=== PATIENT | female | born 1940 | race Caucasian/White ===

== ENCOUNTER → 2016-09-28 | Outpatient (CLI) | payer OTHER ==
[~2016-09-28] MED LIST: B-12500 MC1 SL; COMPAZINE10 MG PO; DECADRON4 MG PO; IBUPROFEN600 MG PO; IBUPROFEN800 MG PO; IRON325 M1 PO; LOVENOX40 MG/0.4 SC; METOPROLOL SUCC25 MG PO; OXYCODONE HCL5 MG PO; TYLENOL EXTRA500 MG PO; ULTRAM50 MG PO; VITAMIN B-6100 MG PO; ZANTAC150 MG PO
== END | disposition home or self-care (01) ==
LOC: OPR 07:56 → EDSTATUS 10:00 → OPR 10:00
DX: R19.04 Left lower quadrant abdominal swelling, mass and lump (principal)
CPT/HCPCS: 10030; 87070; 87075; 87205; 88108; 88305; J3010

== ENCOUNTER → 2017-01-10 | Outpatient (CLI) | payer OTHER ==
[~2017-01-10] MED LIST changes: +TOPROL XL50 MG PO
== END | disposition home or self-care (01) ==
LOC: OPR 09:15 → EDSTATUS 10:00
DX: R19.00 Intra-abdominal and pelvic swelling, mass and lump, unspecified site (principal); Z85.42 Personal history of malignant neoplasm of other parts of uterus; Z92.21 Personal history of antineoplastic chemotherapy; Z88.0 Allergy status to penicillin
CPT/HCPCS: 77012; 87070; 87075; 87205; 88305; J3010

== ENCOUNTER 2017-02-13 12:24 | Inpatient (IN) | payer OTHER ==
[~2017-02-13] VITALS: Ht 162.6 cm; Wt 73.6 kg
[~2017-02-13 12:24] MED LIST changes: +CIPRO500 MG PO; +FLAGYL500 MG PO
[2017-02-13 13:38] LABS: EOSINOPHIL (%) 3.1 % (0-5); EOSINOPHIL COUNT 0.2 K/uL (0-0.3); HEMATOCRIT 26.6 % (36.0-46.0); IMMATURE GRANULOCYTE (%) 0.3 % (0.0-0.7); INSTRUMENT ABS NEUTROPHIL CT 5.2 K/uL; LYMPHOCYTE COUNT 0.8 K/uL (1.0-2.8); MCH 28.8 PG (29.0-34.0); MCHC 31.6 G/DL (30.0-36.0); MCV 91.1 FL (83-99); MONOCYTE (%) 7.6 % (3-12); MONOCYTE COUNT 0.5 K/uL (0-0.8); NEUTROPHIL (%) 76.9 % (45-76); NEUTROPHIL COUNT 5.2 K/uL (1.8-6.4); PLATELET COUNT 299 K/uL (156-360); RBC DIS.WIDTH-CV 12.7 % (11.8-14.6); RED BLOOD COUNT 2.92 M/uL (3.80-5.20); WHITE BLOOD COUNT 6.8 K/uL (4.1-10.2)
[2017-02-13 13:49] LABS: CHLORIDE 104 mEq/L (99-109); POTASSIUM 3.6 mEq/L (3.7-5.4); SODIUM 138 mEq/L (136-147)
[2017-02-13 13:51] LABS: GLUCOSE 107 mg/dL (70-99)
[2017-02-13 13:53] LABS: ANION GAP 8 MEQ/L (2-14); TOTAL BILIRUBIN 0.3 mg/dL (0.0-1.0)
[2017-02-13 13:55] LABS: ALKALINE PHOSPHATASE 46 IU/L (3-129); GFR ESTIMATE (CALCULATED) > 59 mL/min/
[2017-02-13 13:56] LABS: UREA NITROGEN (BUN) 17 mg/dL (9-23)
[2017-02-13 14:33] LABS: INTER. NORMALIZED RATIO 1.1; PROTHROMBIN TIME 10.7 (9.2-11.2); PTT 24.8 (25-32)
[2017-02-13 15:31] LABS: HEMATOCRIT 24.6 % (36.0-46.0); MCV 90.8 FL (83-99)
[2017-02-13] MEDS ORDERED: CYANOCOBALAM1000 MCG PO (15:39)
[2017-02-13 17:29] VITALS: BP 141/67
[2017-02-13 19:41] VITALS: BP 130/58
[2017-02-13 23:08] LABS: HEMATOCRIT 22.8 % (36.0-46.0); MCV 90.8 FL (83-99)
[2017-02-14] VITALS (13 sets, daily range): BP systolic 107–143; BP diastolic 51–67
[2017-02-14 05:52] LABS: HEMATOCRIT 21.8 % (36.0-46.0); MCV 92.4 FL (83-99)
[2017-02-14 06:15] LABS: INTER. NORMALIZED RATIO 1.1; PTT 22.1 (25-32)
[2017-02-14 06:16] LABS: ALKALINE PHOSPHATASE 34 IU/L (3-129); ANION GAP 8 MEQ/L (2-14); CHLORIDE 107 MEQ/L (99-109); GFR ESTIMATE (CALCULATED) > 59 mL/min/; GLUCOSE 97 mg/dL (70-99); POTASSIUM 3.8 MEQ/L (3.7-5.4); SAMPLE HEMOLYSIS CHECK 0; SAMPLE ICTERIC CHECK 0; SAMPLE LIPEMIA CHECK 0; SODIUM 139 MEQ/L (136-147); TOTAL BILIRUBIN 0.4 MG/DL (0.0-1.0); UREA NITROGEN (BUN) 15 mg/dL (9-23)
[2017-02-14 11:03] LABS: TYPE OF FLUID PARACENTESIS
[2017-02-14 11:36] LABS: BODY FLUID RBC'S 390000 /MM^3 (0-100); BODY FLUID WBC'S 1490 /MM^3 (0-500)
[2017-02-14 12:15] LABS: BODY FLUID EOSINOPHILS 1 % (0-25); MONONUCLEAR WBC'S 17 %; POLYNUCLEAR WBC'S 82 % (0-25)
[2017-02-14 16:53] LABS: HEMATOCRIT 31.5 % (36.0-46.0); MCV 89.2 FL (83-99)
[2017-02-15] VITALS: BP 128/59
[2017-02-15 03:32] VITALS: BP 118/58
[2017-02-15 06:47] LABS: HEMATOCRIT 29.3 % (36.0-46.0); MCH 28.6 PG (29.0-34.0); MCHC 32.4 G/DL (30.0-36.0); MCV 88.3 FL (83-99); MEAN PLAT.VOLUME 8.1 uM^3 (9.5-12.4); PLATELET COUNT 230 K/uL (156-360); RBC DIS.WIDTH-CV 13.4 % (11.8-14.6); RBC DIS.WIDTH-SD 43.5 % (39-53); RED BLOOD COUNT 3.32 M/uL (3.80-5.20); WHITE BLOOD COUNT 5.3 K/uL (4.1-10.2)
[2017-02-15 07:14] LABS: ANION GAP 7 MEQ/L (2-14); CHLORIDE 107 MEQ/L (99-109); GFR ESTIMATE (CALCULATED) > 59 mL/min/; GLUCOSE 94 mg/dL (70-99); POTASSIUM 3.5 MEQ/L (3.7-5.4); SAMPLE HEMOLYSIS CHECK 0; SAMPLE ICTERIC CHECK 0; SAMPLE LIPEMIA CHECK 0; SODIUM 138 MEQ/L (136-147); UREA NITROGEN (BUN) 12 mg/dL (9-23)
[2017-02-15 07:40] VITALS: BP 141/66
[2017-02-15 11:11] VITALS: BP 144/70
[2017-02-15 15:22] VITALS: BP 134/58
[2017-02-15 19:58] VITALS: BP 110/51
[2017-02-16] VITALS: BP 111/52
[2017-02-16 03:57] VITALS: BP 121/58
[2017-02-16 05:49] LABS: EOSINOPHIL (%) 4.6 % (0-5); EOSINOPHIL COUNT 0.2 K/uL (0-0.3); HEMATOCRIT 26.8 % (36.0-46.0); IMMATURE GRANULOCYTE (%) 0.4 % (0.0-0.7); INSTRUMENT ABS NEUTROPHIL CT 3.3 K/uL; LYMPHOCYTE COUNT 0.7 K/uL (1.0-2.8); MCH 29.8 PG (29.0-34.0); MCHC 33.2 G/DL (30.0-36.0); MCV 89.6 FL (83-99); MEAN PLAT.VOLUME 8.2 uM^3 (9.5-12.4); MONOCYTE (%) 11.4 % (3-12); MONOCYTE COUNT 0.6 K/uL (0-0.8); NEUTROPHIL (%) 69.3 % (45-76); NEUTROPHIL COUNT 3.3 K/uL (1.8-6.4); PLATELET COUNT 222 K/uL (156-360); RBC DIS.WIDTH-CV 13.4 % (11.8-14.6); RBC DIS.WIDTH-SD 43.8 % (39-53); RED BLOOD COUNT 2.99 M/uL (3.80-5.20); WHITE BLOOD COUNT 4.8 K/uL (4.1-10.2)
[2017-02-16 06:10] LABS: ANION GAP 6 MEQ/L (2-14); CHLORIDE 106 MEQ/L (99-109); GFR ESTIMATE (CALCULATED) > 59 mL/min/; GLUCOSE 97 mg/dL (70-99); POTASSIUM 3.9 MEQ/L (3.7-5.4); SAMPLE HEMOLYSIS CHECK 0; SAMPLE ICTERIC CHECK 0; SAMPLE LIPEMIA CHECK 0; SODIUM 138 MEQ/L (136-147); UREA NITROGEN (BUN) 12 mg/dL (9-23)
[2017-02-16 07:20] VITALS: BP 148/62
[2017-02-16 11:12] VITALS: BP 142/63
[2017-02-16 15:20] VITALS: BP 117/61
[2017-02-16 20:19] VITALS: BP 119/52
[2017-02-17] VITALS: BP 111/52
[2017-02-17 03:45] VITALS: BP 122/60
[2017-02-17 06:16] LABS: EOSINOPHIL (%) 4.4 % (0-5); EOSINOPHIL COUNT 0.2 K/uL (0-0.3); HEMATOCRIT 25.5 % (36.0-46.0); IMMATURE GRANULOCYTE (%) 0.4 % (0.0-0.7); INSTRUMENT ABS NEUTROPHIL CT 3.5 K/uL; LYMPHOCYTE COUNT 0.7 K/uL (1.0-2.8); MCH 29.3 PG (29.0-34.0); MCHC 32.9 G/DL (30.0-36.0); MCV 88.9 FL (83-99); MEAN PLAT.VOLUME 8.4 uM^3 (9.5-12.4); MONOCYTE (%) 11.4 % (3-12); MONOCYTE COUNT 0.6 K/uL (0-0.8); NEUTROPHIL (%) 70.2 % (45-76); NEUTROPHIL COUNT 3.5 K/uL (1.8-6.4); PLATELET COUNT 206 K/uL (156-360); RBC DIS.WIDTH-SD 42.2 % (39-53); RED BLOOD COUNT 2.87 M/uL (3.80-5.20)
[2017-02-17 06:41] LABS: ANION GAP 7 MEQ/L (2-14); CHLORIDE 105 MEQ/L (99-109); GFR ESTIMATE (CALCULATED) > 59 mL/min/; GLUCOSE 95 mg/dL (70-99); POTASSIUM 3.8 MEQ/L (3.7-5.4); SAMPLE HEMOLYSIS CHECK 0; SAMPLE ICTERIC CHECK 0; SAMPLE LIPEMIA CHECK 0; SODIUM 139 MEQ/L (136-147); UREA NITROGEN (BUN) 12 mg/dL (9-23)
[2017-02-17 07:19] VITALS: BP 132/62
[2017-02-17] MEDS ORDERED: PANTOPRAZOLE SO40 MG PO (11:05)
== END 2017-02-17 12:42 | disposition home or self-care (01) | DRG 378 ==
LOC: EME 12:24 → EDOF 15:06 → 5SOUTH 15:06
PROVIDERS: Emergency Medicine; Internal Medicine; Specialist
PROC: 0DB98ZX Excision of Duodenum, Via Natural or Artificial Opening Endoscopic, Diagnostic (ICD-10-PCS; 2017-02-13)
PROC: 30233N1 Transfusion of Nonautologous Red Blood Cells into Peripheral Vein, Percutaneous Approach (ICD-10-PCS; 2017-02-13)
PROC: 0W9G3ZZ Drainage of Peritoneal Cavity, Percutaneous Approach (ICD-10-PCS; principal; 2017-02-14)
PROC: 0DB68ZX Excision of Stomach, Via Natural or Artificial Opening Endoscopic, Diagnostic (ICD-10-PCS; 2017-02-14)
PROC: 0JB83ZX Excision of Abdomen Subcutaneous Tissue and Fascia, Percutaneous Approach, Diagnostic (ICD-10-PCS; 2017-02-16)
DX: K25.4 Chronic or unspecified gastric ulcer with hemorrhage (principal); R18.0 Malignant ascites; K22.11 Ulcer of esophagus with bleeding; D50.0 Iron deficiency anemia secondary to blood loss (chronic); D62 Acute posthemorrhagic anemia; E87.6 Hypokalemia; I10 Essential (primary) hypertension; Z85.42 Personal history of malignant neoplasm of other parts of uterus; K29.70 Gastritis, unspecified, without bleeding; K44.9 Diaphragmatic hernia without obstruction or gangrene; Z80.0 Family history of malignant neoplasm of digestive organs; Z85.038 Personal history of other malignant neoplasm of large intestine; Z90.49 Acquired absence of other specified parts of digestive tract; Z90.710 Acquired absence of both cervix and uterus; Z92.21 Personal history of antineoplastic chemotherapy; G89.29 Other chronic pain; M54.9 Dorsalgia, unspecified; R06.02 Shortness of breath; R19.04 Left lower quadrant abdominal swelling, mass and lump; E66.9 Obesity, unspecified; Z68.27 Body mass index [BMI] 27.0-27.9, adult
CPT/HCPCS: 36415; 74177; 77012; 80048; 80053; 83605; 85014; 85018; 85025; 85027; 85610; 85730; 86900; 86901; 86920; 87040; 87070; 87075; 87086 GA; 87205; 88108; 88305; 88341 TC; 88342 TC; 89051; 99281; 99285; C9113; J2250; J3010; J3480; J7050; P9016

== ENCOUNTER 2017-02-20 11:08 | Emergency (ER) | payer OTHER ==
[~2017-02-20] VITALS: Ht 162.6 cm; Wt 68.4 kg
[~2017-02-20 11:08] MED LIST changes: +CYANOCOBALAM1000 MCG PO; +PANTOPRAZOLE SO40 MG PO
[2017-02-20 12:10] LABS: HEMATOCRIT 27.1 % (36.0-46.0); MCH 28.7 PG (29.0-34.0); MCHC 32.5 G/DL (30.0-36.0); MCV 88.3 FL (83-99); MEAN PLAT.VOLUME 8.5 uM^3 (9.5-12.4); PLATELET COUNT 276 K/uL (156-360); RBC DIS.WIDTH-CV 12.7 % (11.8-14.6); RBC DIS.WIDTH-SD 40.8 % (39-53); RED BLOOD COUNT 3.07 M/uL (3.80-5.20); WHITE BLOOD COUNT 5.9 K/uL (4.1-10.2)
[2017-02-20 12:16] LABS: CHLORIDE 100 mEq/L (99-109); POTASSIUM 4.1 mEq/L (3.7-5.4); SODIUM 135 mEq/L (136-147)
[2017-02-20 12:18] LABS: GLUCOSE 105 mg/dL (70-99)
[2017-02-20 12:19] LABS: ANION GAP 8 MEQ/L (2-14)
[2017-02-20 12:22] LABS: ALKALINE PHOSPHATASE 58 IU/L (3-129); GFR ESTIMATE (CALCULATED) 57 mL/min/
[2017-02-20 12:23] LABS: UREA NITROGEN (BUN) 12 mg/dL (9-23)
[2017-02-20 12:24] LABS: TOTAL BILIRUBIN 0.4 mg/dL (0.0-1.0)
[2017-02-20 12:25] LABS: LIPASE 8 U/L (1.0-51.0)
[2017-02-20 12:28] LABS: TROP-I INTERPRETATION NEGATIVE; TROPONIN-I < 0.01 ng/mL (0.0-0.30)
[2017-02-20 18:50] VITALS: BP 125/62
== END 2017-02-20 18:51 | disposition home or self-care (01) ==
LOC: EME 11:08
PROVIDERS: Nurse Practitioner Family
PROC: 0W9G3ZZ Drainage of Peritoneal Cavity, Percutaneous Approach (ICD-10-PCS; principal; 2017-02-20)
DX: R18.8 Other ascites (principal); C78.6 Secondary malignant neoplasm of retroperitoneum and peritoneum; R06.02 Shortness of breath; Z85.41 Personal history of malignant neoplasm of cervix uteri; Z90.710 Acquired absence of both cervix and uterus; Z85.038 Personal history of other malignant neoplasm of large intestine; I10 Essential (primary) hypertension
CPT/HCPCS: 49083; 71020; 74177; 80053; 81003; 83690; 84484; 85027; 86900; 86901; 93005; 99281; 99284; J7030

== ENCOUNTER → 2017-02-23 | Outpatient (CLI) | payer OTHER ==
[~2017-02-23] MED LIST changes: +OXYCONTIN10 MG PO; +SENOKOT,SENN1 TABLET PO
== END | disposition home or self-care (01) ==
LOC: RAD 13:23
PROC: 0WJG3ZZ Inspection of Peritoneal Cavity, Percutaneous Approach (ICD-10-PCS; principal; 2017-02-23)
DX: R18.0 Malignant ascites (principal); C56.2 Malignant neoplasm of left ovary; C78.6 Secondary malignant neoplasm of retroperitoneum and peritoneum; Z53.09 Procedure and treatment not carried out because of other contraindication
CPT/HCPCS: 76705

== ENCOUNTER 2017-02-27 15:40 | Emergency (ER) | payer OTHER ==
[~2017-02-27] VITALS: Ht 162.6 cm; Wt 67.9 kg
[~2017-02-27 15:40] MED LIST changes: -OXYCONTIN10 MG PO; -SENOKOT,SENN1 TABLET PO
[2017-02-27 16:43] LABS: HEMATOCRIT 23.8 % (36.0-46.0); MCH 27.8 PG (29.0-34.0); MCHC 32.4 G/DL (30.0-36.0); MCV 85.9 FL (83-99); RBC DIS.WIDTH-CV 12.9 % (11.8-14.6); RBC DIS.WIDTH-SD 40.5 % (39-53); RED BLOOD COUNT 2.77 M/uL (3.80-5.20); WHITE BLOOD COUNT 7.4 K/uL (4.1-10.2)
[2017-02-27 16:44] LABS: PLATELET COUNT 396 K/uL (156-360)
[2017-02-27 16:48] LABS: CHLORIDE 99 mEq/L (99-109); POTASSIUM 3.9 mEq/L (3.7-5.4); SODIUM 134 mEq/L (136-147)
[2017-02-27 16:51] LABS: GLUCOSE 118 mg/dL (70-99); INTER. NORMALIZED RATIO 1.2
[2017-02-27 16:52] LABS: ANION GAP 12 MEQ/L (2-14)
[2017-02-27 16:53] LABS: TOTAL BILIRUBIN 0.4 mg/dL (0.0-1.0)
[2017-02-27 16:54] LABS: ALKALINE PHOSPHATASE 71 IU/L (3-129); GFR ESTIMATE (CALCULATED) 57 mL/min/
[2017-02-27 16:55] LABS: UREA NITROGEN (BUN) 21 mg/dL (9-23)
[2017-02-27 17:01] LABS: TROP-I INTERPRETATION NEGATIVE; TROPONIN-I < 0.01 ng/mL (0.0-0.30)
[2017-02-27] MEDS ORDERED: SENOKOT,SENN1 TABLET PO (20:23)
[2017-02-27] MEDS ORDERED: OXYCONTIN10 MG PO (20:23)
[2017-02-27 20:50] VITALS: BP 137/53
[2017-03-01] MEDS ORDERED: ARYMO ER15 MG PO (08:50)
[2017-03-01] MEDS ORDERED: LEXAPRO10 MG PO (10:14)
[2017-03-08] MEDS ORDERED: ARYMO ER15 MG PO (08:43)
== END 2017-02-27 21:55 | disposition home or self-care (01) ==
LOC: EME 15:40
PROVIDERS: Emergency Medicine
DX: C78.6 Secondary malignant neoplasm of retroperitoneum and peritoneum (principal); R18.8 Other ascites; D63.8 Anemia in other chronic diseases classified elsewhere; R06.02 Shortness of breath; K59.00 Constipation, unspecified; I10 Essential (primary) hypertension; Z85.42 Personal history of malignant neoplasm of other parts of uterus; Z85.038 Personal history of other malignant neoplasm of large intestine; Z90.710 Acquired absence of both cervix and uterus
CPT/HCPCS: 71020; 71260; 74177; 80053; 84484; 85027; 85610; 85730; 99281; 99285; J2270; J7030

== ENCOUNTER → 2017-03-01 | Outpatient (CLI) | payer OTHER ==
[~2017-03-01] MED LIST changes: +ARYMO ER15 MG PO; +LEXAPRO10 MG PO; +OXYCONTIN10 MG PO; +SENOKOT,SENN1 TABLET PO
== END | disposition home or self-care (01) ==
LOC: RAD 08:30
PROC: 0W9G3ZZ Drainage of Peritoneal Cavity, Percutaneous Approach (ICD-10-PCS; principal; 2017-03-01)
DX: R18.8 Other ascites (principal); C56.2 Malignant neoplasm of left ovary; C78.6 Secondary malignant neoplasm of retroperitoneum and peritoneum
CPT/HCPCS: 49083

== ENCOUNTER → 2017-03-08 | Outpatient (CLI) | payer OTHER | END | disposition home or self-care (01) | LOC: RAD 08:30 | PROC: 0W9G3ZZ Drainage of Peritoneal Cavity, Percutaneous Approach (ICD-10-PCS; principal; 2017-03-08) | DX: R18.8 Other ascites (principal); C56.2 Malignant neoplasm of left ovary; C78.6 Secondary malignant neoplasm of retroperitoneum and peritoneum | CPT/HCPCS: 49083; C1769 ==